=== PATIENT | female | born 1935 | race Caucasian/White ===

== ENCOUNTER 2021-01-24 11:34 | Observation (INO) ==
[2021-01-24] MEDS ORDERED: cefTRIAXone 1,000 MG in Water for inj. (sterile) 10 ML IVP ONE (11:51)
[2021-01-24] MEDS ORDERED: 0.9 % Sodium Chloride 1,000 ML IVC ONE (11:57)
[2021-01-24] MEDS ORDERED: Acetaminophen IV 500 MG/50 ML BAG IVPB ONE (12:10)
[2021-01-24 12:15] LABS: Basophils % 0.4 %; Eosinophils # 0.1 K/mcL (0.0-0.6); Hematocrit 38.5 % (35.3-44.9); Hemoglobin 11.9 g/dL (11.5-15.4); Immature Granulocytes % 0.4 % (0-4); Lymphocytes # 1.9 K/mcL (0.6-4.6); Lymphocytes % 23.7 %; Mean Corpuscular HGB Conc 30.9 g/dL (31.6-35.5); Mean Corpuscular Volume 93.7 fL (83.0-100.0); Monocytes # 0.6 K/mcL (0.0-1.3); Monocytes % 7.7 %; Neutrophils # 5.3 K/mcL (1.6-8.9); Platelet Count 171 K/mcL (140-400); Red Blood Count 4.11 M/mcL (3.82-4.97); Red Cell Distribution Width 12.9 % (11.5-14.5); Segmented Neutrophils % 66.8 %; White Blood Count 7.9 K/mcL (4.3-11.1)
[2021-01-24 12:37] LABS: Alanine Aminotransferase 153 Units/L (7-52); Albumin 4.1 g/dL (3.5-5.7); Albumin/Globulin Ratio 1.5 (1.1-2.2); Alkaline Phosphatase 109 Units/L (34-104); Aspartate Amino Transferase 152 Units/L (13-39); BUN/Creatinine Ratio 18 (6-26); Bilirubin,Total 0.7 mg/dL (0.3-1.0); Blood Urea Nitrogen 21 mg/dL (8-23); Carbon Dioxide 31 mEq/L (23-29); Chloride 101 mEq/L (98-107); Globulin 2.7 g/dL (2.4-3.5); Glucose 92 mg/dL (70-105); Osmolality,Calculated 289 (280-300); Phosphorous 3.5 mg/dL (2.7-4.5); Sodium 138 mEq/L (136-145); Total Protein 6.8 g/dL (6.4-8.9); Troponin I < 0.03 ng/mL (< 0.04); eGFR For African Americans 52 (> 60); eGFR For Non-African Americans 43 (> 60)
[2021-01-24 12:59] LABS: Bilirubin,Urine Negative (Negative); Blood,Urine Large (Negative); Clarity,Urine Clear (Clear); Color,Urine Yellow (Yellow); Glucose,Urine (UA) Normal (Normal); Hyaline Casts,Urine Moderate per lpf (None Seen); Ketones,Urine Negative (Negative); Leukocyte Esterase,Urine Negative (Negative); Mucus,Urine Few per lpf (None-Few); Nitrite,Urine Negative (Negative); PH,Urine 5.5 pH Units (5.0-8.0); Protein,Urine Trace mg/dL (Neg-Trace); Specific Gravity,Urine 1.016 (1.010-1.025); Urobilinogen,Urine Normal (Normal); WBC,Urine 0-3 per hpf (0-3)
[2021-01-24 14:35] LABS: VBG HCO3 30 mEq/L (21-27); VBG PCO2 59 mmHg (41-51); VBG PH 7.32 pH Units (7.32-7.42); VBG PO2 69 mmHg (25-50)
[2021-01-24 14:41] LABS: INR 1.1; Prothrombin Time 12.4 Seconds (9.4-12.1)
[2021-01-24] MEDS ORDERED: Ondansetron 4 MG/2 ML VIAL IVP PRN (14:42)
[2021-01-24] MEDS ORDERED: Naloxone 0.4 MG/ML INJ IVP PRN (14:42)
[2021-01-24] MEDS ORDERED: Melatonin 3 MG TABLET PO PRN (14:42)
[2021-01-24] MEDS ORDERED: Mag Hydrox/Al Hydrox/Simeth 30 ML UDC PO PRN (14:42)
[2021-01-24] MEDS ORDERED: ALPRAZolam 0.5 MG TABLET PO PRN (14:44)
[2021-01-24] MEDS ORDERED: *HR* OxyCODONE Immed Rel 5 MG TABLET PO PRN (14:46)
[2021-01-24 15:18] LABS: Hepatitis B Surface Antigen Nonreactive (Nonreactive)
[2021-01-24 15:46] LABS: Hepatitis C Virus Antibody Nonreactive (Nonreactive)
[2021-01-24 15:47] LABS: Hepatitis B Core IgM Nonreactive (Nonreactive)
[2021-01-24 15:49] LABS: Hepatitis A Antibody IgM Nonreactive (Nonreactive)
[2021-01-24 17:26] LABS: Adenovirus Not Detected (Not Detect); Coronavirus 229E Not Detected (Not Detect); Coronavirus HKU1 Not Detected (Not Detect); Coronavirus NL63 Not Detected (Not Detect); Coronavirus OC43 Not Detected (Not Detect); Human Metapneumovirus Not Detected (Not Detect); Human Rhinovirus/Enterovirus Not Detected (Not Detect); Influenza A Subtype 2009 H1 Not Detected (Not Detect); SARS-CoV-2 Not Detected (Not Detect)
[2021-01-24 17:27] LABS: Bordetella Pertussis Not Detected (Not Detect); Chlamydophila pneumoniae Not Detected (Not Detect); Influenza B Not Detected (Not Detect); Mycoplasma pneumoniae Not Detected (Not Detect); Parainfluenza Virus 1 Not Detected (Not Detect); Parainfluenza Virus 2 Not Detected (Not Detect); Parainfluenza Virus 3 Not Detected (Not Detect); Parainfluenza Virus 4 Not Detected (Not Detect); Respiratory Syncytial Virus Not Detected (Not Detect)
[2021-01-24 18:46] LABS: VBG HCO3 31 mEq/L (21-27); VBG PCO2 61 mmHg (41-51); VBG PH 7.31 pH Units (7.32-7.42); VBG PO2 129 mmHg (25-50)
[2021-01-25 01:32] LABS: Basophils % 0.3 %; Eosinophils # 0.1 K/mcL (0.0-0.6); Eosinophils % 1.5 %; Hematocrit 32.8 % (35.3-44.9); Immature Granulocytes % 0.2 % (0-4); Lymphocytes % 33.7 %; Mean Corpuscular HGB Conc 31.4 g/dL (31.6-35.5); Mean Corpuscular Hemoglobin 29.3 pg (28.0-33.3); Mean Corpuscular Volume 93.2 fL (83.0-100.0); Mean Platelet Volume 10.3 fL (9.4-12.4); Monocytes # 0.6 K/mcL (0.0-1.3); Monocytes % 9.6 %; Neutrophils # 3.3 K/mcL (1.6-8.9); Platelet Count 140 K/mcL (140-400); Red Blood Count 3.52 M/mcL (3.82-4.97); Red Cell Distribution Width 12.9 % (11.5-14.5); Segmented Neutrophils % 54.7 %
[2021-01-25 01:44] LABS: Hemoglobin 10.3 g/dL (11.5-15.4)
[2021-01-25 01:47] LABS: Alanine Aminotransferase 102 Units/L (7-52); Albumin 3.4 g/dL (3.5-5.7); Albumin/Globulin Ratio 1.4 (1.1-2.2); Alkaline Phosphatase 79 Units/L (34-104); Aspartate Amino Transferase 82 Units/L (13-39); BUN/Creatinine Ratio 22 (6-26); Bilirubin,Direct 0.1 mg/dL (0.0-0.2); Bilirubin,Indirect 0.2 mg/dL (0.0-1.0); Bilirubin,Total 0.3 mg/dL (0.3-1.0); Blood Urea Nitrogen 20 mg/dL (8-23); Calcium 9.3 mg/dL (8.6-10.3); Carbon Dioxide 30 mEq/L (23-29); Chloride 106 mEq/L (98-107); Globulin 2.4 g/dL (2.4-3.5); Glucose 104 mg/dL (70-105); Osmolality,Calculated 291 (280-300); Sodium 139 mEq/L (136-145); Total Protein 5.8 g/dL (6.4-8.9); eGFR For African Americans > 60 (> 60); eGFR For Non-African Americans 59 (> 60)
[2021-01-25 11:24] VITALS: BP 153/71
[2021-01-25] MEDS ORDERED: ALPRAZolam 0.5 MG TABLET PO PRN (11:32)
[2021-01-25] MEDS ORDERED: haloperidoL 1 MG TABLET PO PRN (11:32)
[2021-01-25] MEDS ORDERED: *HR* HYDROcodone/Acet 5/325 mg TABLET PO PRN (11:32)
[2021-01-25] MEDS ORDERED: Bisacodyl 10 MG RECTAL SUPPOSITORY RC PRN (11:32)
[2021-01-25] MEDS ORDERED: Morphine Sulfate ER (12 HR) 15 MG TABLET.ER PO SCH (21:00)
[2021-01-25] MEDS ORDERED: lisinopriL 20 MG TABLET PO SCH (21:00)
[2021-01-25] MEDS ORDERED: Hyoscyamine SL 0.125 MG TAB.SUBL PO SCH (21:00)
[2021-01-26] MEDS ORDERED: Furosemide 20 MG TABLET PO SCH (09:00)
[2021-01-26] MEDS ORDERED: Aspirin Enteric Coated 81 MG Tablet PO SCH (09:00)
[2021-01-26] MEDS ORDERED: Fluticasone Propionate Nasal 50 MCG/SPRAY BOTTLE NS SCH (09:00)
[2021-01-26] MEDS ORDERED: polyethylene glycoL 3350 17 GM POWD.PACK PO SCH (09:00)
== END 2021-01-25 14:15 | disposition home or self-care (01) ==
LOC: EMEROOARM 11:34 → 3BNU 11:34 → SUATTDRO 14:11 → 3BNU 15:48
PROVIDERS: ADMIT Internal Medicine; ATTEND Student in an Organized Health Care Education/Training Program

== ENCOUNTER 2022-06-02 16:31 | Inpatient (IN) ==
[2022-06-02] MEDS ORDERED: Iopamidol - 370 500 ML MLS IVP ONE (16:45)
[2022-06-02] MEDS: *HR* Metoprolol 5 MG/5 ML VIAL IVP PRN ×3 (16:58→17:13)
[2022-06-02 17:20] LABS: Basophils % 0.4 %; Eosinophils # 0.2 K/mcL (0.0-0.6); Hematocrit 32.4 % (35.3-44.9); Immature Granulocytes % 0.1 % (0-4); Lymphocytes # 2.5 K/mcL (0.6-4.6); Lymphocytes % 32.8 %; Mean Corpuscular HGB Conc 30.9 g/dL (31.6-35.5); Mean Corpuscular Hemoglobin 26.7 pg (28.0-33.3); Mean Corpuscular Volume 86.6 fL (83.0-100.0); Mean Platelet Volume 10.6 fL (9.4-12.4); Monocytes # 0.6 K/mcL (0.0-1.3); Monocytes % 8.3 %; Neutrophils # 4.3 K/mcL (1.6-8.9); Platelet Count 195 K/mcL (140-400); Red Blood Count 3.74 M/mcL (3.82-4.97); Red Cell Distribution Width 13.4 % (11.5-14.5); Segmented Neutrophils % 56.4 %; White Blood Count 7.6 K/mcL (4.3-11.1)
[2022-06-02 17:27] LABS: INR 1.3; Prothrombin Time 14.3 Seconds (9.4-12.1)
[2022-06-02 18:50] LABS: Calcium 9.7 mg/dL (8.6-10.3); Magnesium 2.2 mg/dL (1.6-2.6); Potassium 3.9 mEq/L (3.5-5.1); Troponin I 0.11 ng/mL (< 0.04)
[2022-06-02 18:51] LABS: Thyroid Stimulating Hormone 2.874 mcIU/mL (0.340-5.600)
[2022-06-02] MEDS ORDERED: Nitroglycerin 0.4 MG TAB.SUBL SL ONE (18:52)
[2022-06-02 19:12] LABS: Influenza A PCR Negative (Negative); Influenza B PCR Negative (Negative); Resp. Syncytial Virus PCR Negative (Negative)
[2022-06-02 19:13] LABS: SARS-CoV-2 by PCR (In House) Negative (Negative)
[2022-06-02] MEDS ORDERED: Naloxone 0.4 MG/ML INJ IVP PRN (19:32)
[2022-06-02] MEDS ORDERED: Ondansetron ODT 4 MG TAB.RAPDIS SL PRN (19:32)
[2022-06-02] MEDS ORDERED: *HR* Heparin 5,000 UNIT/ML VIAL IVP ONE (19:39)
[2022-06-02] MEDS ORDERED: *HR* Heparin 5,000 UNIT/ML VIAL IVP PRN (19:39)
[2022-06-02] MEDS: ALPRAZolam 0.5 MG TABLET PO PRN (21:26)
[2022-06-02] MEDS: Heparin 25,000UNIT/250ML 1/2NS 25,000 UNIT/250 ML IV.SOLN IVC SCH (21:26)
[2022-06-03] MEDS ORDERED: Furosemide 20 MG/2 ML VIAL IVP ONE (03:35)
[2022-06-03] MEDS ORDERED: *HR* Metoprolol 5 MG/5 ML VIAL IVP PRN (03:41)
[2022-06-03] MEDS: Ondansetron 4 MG/2 ML VIAL IVP PRN (04:05)
[2022-06-03 05:05] LABS: INR 0.9; Prothrombin Time 10.4 Seconds (9.4-12.1)
[2022-06-03 05:06] LABS: Heparin anti-factor XA UFH 0.4 IU/mL (0.30-0.70)
[2022-06-03 05:41] LABS: Magnesium 2.2 mg/dL (1.6-2.6); Phosphorous 4.3 mg/dL (2.7-4.5); Potassium 3.3 mEq/L (3.5-5.1); Troponin I 9.04 ng/mL (< 0.04)
[2022-06-03 06:57] LABS: Hematocrit 37.5 % (35.3-44.9); Hemoglobin 11.6 g/dL (11.5-15.4); Mean Corpuscular HGB Conc 30.9 g/dL (31.6-35.5); Mean Corpuscular Hemoglobin 26.8 pg (28.0-33.3); Mean Corpuscular Volume 86.6 fL (83.0-100.0); Mean Platelet Volume 9.7 fL (9.4-12.4); Platelet Count 229 K/mcL (140-400); Red Blood Count 4.33 M/mcL (3.82-4.97); Red Cell Distribution Width 13.6 % (11.5-14.5); White Blood Count 9.9 K/mcL (4.3-11.1)
[2022-06-03] MEDS: Aspirin 81 MG TAB.CHEW PO SCH (07:40)
[2022-06-03] MEDS: *HR* Heparin 5,000 UNIT/ML VIAL IVP PRN (13:04)
[2022-06-03] MEDS: ALPRAZolam 0.5 MG TABLET PO PRN (22:18)
[2022-06-04] MEDS: Heparin 25,000UNIT/250ML 1/2NS 25,000 UNIT/250 ML IV.SOLN IVC SCH (00:19)
[2022-06-04] MEDS: Aspirin 81 MG TAB.CHEW PO SCH (08:29)
[2022-06-04] MEDS: ALPRAZolam 0.5 MG TABLET PO PRN ×2 (10:54→20:27)
[2022-06-04] MEDS: Melatonin 3 MG TABLET PO PRN (20:27)
[2022-06-05] MEDS: Heparin 25,000UNIT/250ML 1/2NS 25,000 UNIT/250 ML IV.SOLN IVC SCH ×2 (02:56→23:00)
[2022-06-05 03:04] LABS: Hematocrit 32.1 % (35.3-44.9); Mean Corpuscular HGB Conc 31.2 g/dL (31.6-35.5); Mean Corpuscular Hemoglobin 27.2 pg (28.0-33.3); Mean Corpuscular Volume 87.2 fL (83.0-100.0); Mean Platelet Volume 10.4 fL (9.4-12.4); Platelet Count 193 K/mcL (140-400); Red Blood Count 3.68 M/mcL (3.82-4.97); Red Cell Distribution Width 13.6 % (11.5-14.5); White Blood Count 7.3 K/mcL (4.3-11.1)
[2022-06-05] MEDS: Ondansetron 4 MG/2 ML VIAL IVP PRN (03:22)
[2022-06-05 03:23] LABS: Calcium 9.9 mg/dL (8.6-10.3); Magnesium 2.1 mg/dL (1.6-2.6)
[2022-06-05] MEDS: *HR* Heparin 5,000 UNIT/ML VIAL IVP PRN (03:47)
[2022-06-05] MEDS: Aspirin 81 MG TAB.CHEW PO SCH (07:39)
[2022-06-05] MEDS ORDERED: *HR* Heparin 10,000 UNIT/10 ML VIAL ONE (13:33)
[2022-06-05] MEDS ORDERED: Iopamidol - 370 200 ML INFUS..BTL ONE (13:33)
[2022-06-05] MEDS ORDERED: 0.9 % Sodium Chloride 2,000 ML ONE (13:33)
[2022-06-05] MEDS ORDERED: Nitroglycerin 1,000 MCG/5 ML VIAL IV ONE (13:33)
[2022-06-05] MEDS ORDERED: Heparin 1,000 UNITS/500 mL 500 ML ONE (13:33)
[2022-06-05] MEDS ORDERED: *HR* Midazolam HCl 2 MG/2 ML VIAL ONE (14:04)
[2022-06-05] MEDS ORDERED: *HR* FentaNYL (PF) 100 MCG/2 ML VIAL ONE (14:04)
[2022-06-05] MEDS: ALPRAZolam 0.5 MG TABLET PO PRN (20:54)
[2022-06-05] MEDS: Melatonin 3 MG TABLET PO PRN (20:55)
[2022-06-06] MEDS: *HR* Heparin 5,000 UNIT/ML VIAL IVP PRN (06:21)
[2022-06-06] MEDS: Aspirin 81 MG TAB.CHEW PO SCH (09:17)
[2022-06-06] MEDS: ALPRAZolam 0.5 MG TABLET PO PRN ×2 (09:21→21:22)
[2022-06-06 16:40] LABS: Bilirubin,Urine Negative (Negative); Blood,Urine Large (Negative); Clarity,Urine Turbid (Clear); Color,Urine Light-Yellow (Yellow); Glucose,Urine (UA) Normal (Normal); Ketones,Urine Negative (Negative); Leukocyte Esterase,Urine Large (Negative); Nitrite,Urine Negative (Negative); Protein,Urine 30 mg/dL (Neg-Trace); RBC,Urine 15-30 per hpf (0-3); Specific Gravity,Urine 1.011 (1.010-1.025); Squamous Epithelial Cell,Urine Few per hpf (None-Few); Urobilinogen,Urine Normal (Normal); WBC,Urine 50-100 per hpf (0-3)
[2022-06-06] MEDS: Heparin 25,000UNIT/250ML 1/2NS 25,000 UNIT/250 ML IV.SOLN IVC SCH (21:15)
[2022-06-06] MEDS: Melatonin 3 MG TABLET PO PRN (21:19)
[2022-06-07 03:43] VITALS: O2SAT 100
[2022-06-07] MEDS: Aspirin 81 MG TAB.CHEW PO SCH (08:56)
[2022-06-07 10:11] VITALS: BP 129/67; PULSE 66; TEMP 98.1
[2022-06-07] MEDS: ALPRAZolam 0.5 MG TABLET PO PRN (13:20)
== END 2022-06-07 15:00 | disposition hospice, home (50) | DRG 280 ==
LOC: 3BNU 16:31 → EMEROOARM 16:31 → SUATTDRO 19:48 → 3BNU 20:18
PROVIDERS: ADMIT Internal Medicine; ATTEND Nurse Practitioner